=== PATIENT | male | born 1960 | race Caucasian/White ===

== ENCOUNTER 2018-09-07 21:04 | Inpatient (IN) | payer BC ==
[~2018-09-07] VITALS: Ht 30.5 cm; Wt 82.6 kg
[2018-09-07 21:40] LABS: HEMATOCRIT 31.9 % (39.0-50.0); HEMOGLOBIN 10.2 g/dl (14.0-18.0); MEAN CELL VOLUME 111.5 fL CALC (80.0-100.0); MEAN CORPUSCULAR HGB 35.7 pG CALC (26.0-32.0); NEUT# 13.3 thou/uL (1.82-7.42); RED BLOOD COUNT 2.86 mill/uL (4.70-6.10); RED CELL DISTRI WIDTH 13.7 % (11.5-15.5)
[2018-09-07 21:56] LABS: ALBUMIN 4.2 g/dL (3.2-5.0); ALKALINE PHOSPHATASE 272 u/l (38-126); BILIRUBIN, TOTAL 1.1 mg/dL (0.0-1.4); BUN 30 mg/dL (9-20); BUN/CREATININE RATIO 17 (12-20 (CALC)); CHLORIDE 97 mmol/l (95-108); CREATININE 1.7 mg/dL (0.7-1.3); GFR 42 ML/MIN (>=60 (CALC)); GFR FOR AFR.AMER. 51 ML/MIN (>=60 (CALC)); POTASSIUM 4.6 mmol/l (3.5-5.1); SGOT/AST 34 u/l (17-59); SODIUM 137 mmol/l (137-146); TOTAL PROTEIN 7.6 g/dL (6.3-8.2)
[2018-09-07 22:07] LABS: ANION GAP 38 (6-22 (CALC)); CARBON DIOXIDE 7 mmol/l (22-30)
[2018-09-07 22:10] LABS: MYOGLOBIN 98 ng/mL (0 - 121)
[2018-09-07 23:30] VITALS: BP 136/75
[2018-09-07] MEDS ORDERED: XARELTO10 MG PO (23:38)
[2018-09-07] MEDS ORDERED: LIPITOR40 M1 PO (23:39)
[2018-09-07] MEDS ORDERED: CAPOTEN50 MG PO (23:39)
[2018-09-07] MEDS ORDERED: FUROSEMIDE20 MG PO (23:40)
[2018-09-07] MEDS ORDERED: NIFEDIPINE ER90 M1 PO (23:40)
[2018-09-07] MEDS ORDERED: VITAMIN B-12500 MCG PO (23:41)
[2018-09-07] MEDS ORDERED: HUMALOG SC (23:42)
[2018-09-07] MEDS ORDERED: METOPROL TAR100 MG PO (23:43)
[2018-09-07 23:45] VITALS: BP 155/74
[2018-09-07 23:52] LABS: URINE BLOOD DIPSTICK NEGATIVE (NEGATIVE); URINE COLOR YELLOW; URINE GLUCOSE - DIPSTICK >=1000 mg/dL (NEGATIVE); URINE KETONE >=80 mg/dL (NEGATIVE); URINE LEUK ESTERASE NEGATIVE (NEGATIVE); URINE NITRITE - DIPSTICK NEGATIVE (Negative); URINE PH 5.5 (4.5-8.0); URINE PROTEIN - DIPSTICK NEGATIVE (NEG-TRACE); URINE UROBILINOGEN - DIPSTICK 0.2 E.U./dL (0.2)
[2018-09-07 23:55] LABS: URINE BILIRUBIN - DIPSTICK SMALL (NEGATIVE)
[2018-09-08] VITALS (24 sets, daily range): BP systolic 100–174; BP diastolic 55–82
[2018-09-08 00:40] LABS: ANION GAP 26 (6-22 (CALC)); BUN 27 mg/dL (9-20); BUN/CREATININE RATIO 20 (12-20 (CALC)); CHLORIDE 105 mmol/l (95-108); CREATININE 1.4 mg/dL (0.7-1.3); GFR 52 ML/MIN (>=60 (CALC)); GFR FOR AFR.AMER. > 60 ML/MIN (>=60 (CALC)); POTASSIUM 4.1 mmol/l (3.5-5.1); SODIUM 143 mmol/l (137-146)
[2018-09-08 00:42] LABS: CARBON DIOXIDE 16 mmol/l (22-30)
[2018-09-08 04:34] LABS: HEMATOCRIT 29.2 % (39.0-50.0); HEMOGLOBIN 9.7 g/dl (14.0-18.0); IMMATURE GRANULOCYTES 0.8 % (0.0-5.0); MEAN CELL VOLUME 106.6 fL CALC (80.0-100.0); MEAN CORPUSCULAR HGB 35.4 pG CALC (26.0-32.0); MEAN CORPUSCULAR HGB CONC 33.2 g/L CALC (32.0-36.0); PLATELET COUNT 173 thou/uL (130-400); RED BLOOD COUNT 2.74 mill/uL (4.70-6.10); RED CELL DISTRI WIDTH 13.8 % (11.5-15.5)
[2018-09-08 04:38] LABS: ANION GAP 16 (6-22 (CALC)); BUN 26 mg/dL (9-20); BUN/CREATININE RATIO 24 (12-20 (CALC)); CARBON DIOXIDE 23 mmol/l (22-30); CHLORIDE 108 mmol/l (95-108); CREATININE 1.1 mg/dL (0.7-1.3); GFR > 60 ML/MIN (>=60 (CALC)); GFR FOR AFR.AMER. > 60 ML/MIN (>=60 (CALC)); POTASSIUM 4.2 mmol/l (3.5-5.1); SODIUM 143 mmol/l (137-146)
[2018-09-08 05:12] LABS: BAND 2 % (0-8); MANUAL DIFFERENTIAL YES
[2018-09-08 05:14] LABS: PLATELET ESTIMATE NORMAL; SCHISTOCYTES FEW
[2018-09-09] VITALS (12 sets, daily range): BP systolic 113–168; BP diastolic 53–86
[2018-09-09] MEDS ORDERED: ZPAK PO (11:29)
[2018-09-09] MEDS ORDERED: ZOFRAN ODT4 MG PO (11:30)
== END 2018-09-09 12:14 | disposition home or self-care (01) | DRG 919 ==
LOC: ED 21:04 → ED-I 22:36 → ED 23:06 → ICU 23:07 → UNDODEPER 09-08 01:19 → ICU 09-09 12:14
PROVIDERS: Family Medicine; ADMIT Internal Medicine Nephrology; ATTEND Internal Medicine Nephrology
DX: T85.624A Displacement of insulin pump, initial encounter (principal); E11.10 Type 2 diabetes mellitus with ketoacidosis without coma; J98.11 Atelectasis; T61.781A Other shellfish poisoning, accidental (unintentional), initial encounter; E86.0 Dehydration; I10 Essential (primary) hypertension; I95.9 Hypotension, unspecified; I48.0 Paroxysmal atrial fibrillation; D64.9 Anemia, unspecified; E78.5 Hyperlipidemia, unspecified; Z79.4 Long term (current) use of insulin; Z79.01 Long term (current) use of anticoagulants